=== PATIENT | male | born 2000 | race Caucasian/White ===

== ENCOUNTER 2023-12-25 20:23 | Emergency (ER) | payer OTHER ==
--- NOTE | 2023-12-25 21:34 | ED Physician Documentation ---
History of Present Illness - Stated complaint Stated Complaint: NOSE PX - Chief complaint Chief Complaint: Heent - Additonal information Additional information: 23-year-old male was playing basketball about a week ago and excellently got elbowed into the nose. He had no bleeding. He has had some bruising to his right eye the bridge of the nose and he is worried that he may have broken it. He said that his pain is overall gotten a lot better and he comes in today saying that he is only curious if he broke it or not. He is having no difficulty breathing no bloody noses since then and it says that overall his pain is significantly improved since the time of the incident. PD PAST MEDICAL HISTORY - Past Medical History Past Medical History: No Cardiovascular: None Respiratory: None Neuro: None Endocrine/Autoimmune: None GI: None : None HEENT: None Psych: None Musculoskeletal: None Derm: None - Past Surgical History Past Surgical History: No - Present Medications Home Medications: Ambulatory Orders Medication Instructions Recorded Confirmed No Known Home Medications 12/25/23 12/25/23 - Allergies Allergies/Adverse Reactions: Allergies Allergy/AdvReac Type Severity Reaction Status Date / Time No Known Drug Allergies Allergy Verified 12/25/23 20:36 - Social History Does the pt smoke?: No Smoking Status: Never smoker Does the pt drink ETOH?: No Does the pt have substance abuse?: No - Immunizations Immunizations are current?: No - POLST Patient has POLST: No PD ED PE NORMAL - Vitals Vital signs reviewed: Yes - General General: Alert and oriented X 3, No acute distress, Well developed/nourished - HEENT HEENT: PERRL, Pharynx benign, Other (well healing bruising to bilateral eyes and at the bridge of the nose, no hematoma inside nasal canal) - Neuro Neuro: Alert and oriented X 3, pump servicer helper 2-12 intact, No motor deficit, Normal speech Eye Opening: Spontaneous Motor: Obeys Commands Verbal: Oriented GCS Score: 15 Results - Vitals Vitals: Vital Signs - 24 hr 12/25/23 12/25/23 20:31 21:28 Temperature 36.5 C 36.3 C L Heart Rate 52 L 61 Respiratory 16 18 Rate Blood Pressure 129/61 116/73 O2 Saturation 100 96 Oxygen O2 Source Room air PD Medical Decision Making - ED course ED course: 23-year-old male presents emergency department for curiosity of if he has a broken nose or not. Patient was informed that the nose is broken there is nothing no intervention that we are able to do here in the emergency department he has no hematoma inside the nasal cavity and was told to follow-up with primary care provider to pursue outpatient imaging if the swelling has not resolved after about a week or so. There is no obvious deformity no swelling of the nose and nose overall appears to be straight and midline. He said that he was agreeable to follow-up with primary care provider outpatient to pursue imaging in a couple weeks that the swelling has not resolved and feels safe to discharge with this plan. He was offered Tylenol and ibuprofen as well as ice here in the emergency department he says that he is not having any pain and this is not warranted at this time. Departure - Departure Disposition: 01 Home, Self Care Clinical Impression: Nose injury Qualifiers: Encounter type: initial encounter Qualified Code(s): S09.92XA - Unspecified injury of nose, initial encounter Condition: Good Instructions: ED Contusion Nasal Vs Fx No X Ray, ED Contusion Nasal Comments: Thank you for trusting us with your care. At this time I do not believe any x- rays are warranted at this time. After couple weeks if you are still noticing some asymmetry of your nose please follow-up with your primary care provider to decide if any further x-rays are needed. You can take Tylenol and ibuprofen for any pain or discomfort. Wishing you a speedy recovery. Forms: PCP List Discharge Date/Time: 12/25/23 21:45
[2023-12-25 21:35] VITALS: BP 116/73; O2SAT 96
== END 2023-12-25 21:45 | disposition home or self-care (01) ==
LOC: ED 20:23
DX: S09.92XA Unspecified injury of nose, initial encounter (principal); W50.0XXA Accidental hit or strike by another person, initial encounter; Y93.67 Activity, basketball; Y92.310 Basketball court as the place of occurrence of the external cause
CPT/HCPCS: 99282; 99283